=== PATIENT | female | born 1995 | race Caucasian/White ===

== ENCOUNTER → 2017-07-20 | Outpatient (CLI) | payer OTHER | END | disposition home or self-care (01) | LOC: C.LABSPEC 13:52 | PROVIDERS: ATTEND Obstetrics & Gynecology | DX: Z11.3 Encounter for screening for infections with a predominantly sexual mode of transmission (principal) ==

== ENCOUNTER 2020-03-07 07:19 | Inpatient (IN) ==
[2020-03-07] MEDS ORDERED: OXYTOCIN 30 UNITS/500 ML BAG IV PRN ×4 (07:29→17:46)
[2020-03-07 07:59] LABS: Hematocrit (blood only) 37.5 % (37-47); Hemoglobin 12.5 g/dL (12.0-16.0); Mean Corpuscular Volume 90.1 fL (80-100); Mean Platelet Volume 10.9 fL (7.4-10.4); Platelet Count 256 K/uL (130-400); RDW Coefficient of Variation 14.3 % (11.5-14.5); RDW Standard Deviation 46.9 fL (36.4-46.3); Red Blood Count 4.16 M/uL (4.2-5.4); White Blood Count 11.66 K/uL (4.8-10.8)
--- NOTE | 2020-03-07 07:59 | Obstetrical Progress Note ---
Date of Service March 07, 2020 Admit Note 24 F P0000 at 40 weeks admitted for IOL for obesity. Cervix 5/80/- 2/vertex/anterior/soft/intact. EFW 7.5 lbs. FHT Cat 1. GBS is negative. Will start Oxytocin to start induction of labor. Planning for epidural. Assessment & Plan Admission and Anticipated Discharge Date Admission Date: March 07, 2020 Results & Data ([facility]) Vital Signs (Past 12 Hours) Vital Signs Temp Pulse Resp BP 03/07/20 07:29 37.1 C 122 H 20 117/67
--- NOTE | 2020-03-07 08:01 | Anesthesiology Consultation ---
Date of Service March 07, 2020 Assessment & Plan Chart Review Chart Review: Acceptable Risk for Surgery, Patient NOT seen in Pre Admission Testing and Acceptable Risk for Labor Epidural Consults Requested none ASA ASA3 Proposed Anesthesia Anesthesia Type: Labor Epidural and CSE History Height/Weight Height: 5 ft 5 in Weight: 120.202 kg Allergies Allergy/AdvReac Type Severity Reaction Status Date / Time sulfamethoxazole AdvReac Nausea Unverified 03/07/20 07:32 [From Bactrim] trimethoprim [From Bactrim] AdvReac Nausea Unverified 03/07/20 07:32 Medications Home Medications Medication Instructions Recorded Confirmed Last Taken ondansetron 8 mg PO Q8H PRN 09/17/19 03/07/20 03/07/20 05:30 promethazine [Phenergan] 25 mg PO DAILY 03/07/20 03/07/20 03/07/20 05:30 Past Medical History Medical History Anxiety Depression Obesity with body mass index (BMI) of 30.0 to 39.9 Seasonal allergic rhinitis Exercise / Class Metabolic Activity II 4-5 Yardwork/Stairs/Walk up hill Past Family History Family History Mother Cardiac disorder Depression Diabetes Hypertension Father Cardiac disorder Hypertension Kidney stones Brother Kidney stones Seizures Aunt No problems noted. Family/Other Breast cancer great grandmother & maternal great aunt Grandfather Myocardial infarction Denies family history of Ovarian cancer Prostate cancer Colorectal cancer Past Surgical History Surgical History History of dental surgery 2011 & 2015 History of knee surgery Relocation of knee cap with anesthesia; 2008 Past Anesthesia History No Hx of Anesthesia Complications and No Family Hx of Anesthesia Complications History of PONV No Hx of PONV and No Hx of Motion Sickness Social History Smoking Status: Never smoker Do You Dip or Chew Tobacco: No Hx Alcohol Use: Yes Hx Substance Use: No Physical Exam Vital Signs Last Vital Signs Temp 37.1 C 03/07/20 07:29 Pulse 122 H 03/07/20 07:29 Resp 20 03/07/20 07:29 BP 117/67 03/07/20 07:29 Testing Laboratory Results 03/07/20 07:44
[2020-03-07 08:03] LABS: Mean Corpuscular Hgb Conc 33.3 g/dL (32-36)
[2020-03-07] MEDS: LACTATED RINGER'S 1,000 ML IV PRN ×2 (08:12→09:44)
--- NOTE | 2020-03-07 08:18 | Obstetrical Progress Note ---
Date of Service March 07, 2020 Assessment & Plan Admission and Anticipated Discharge Date Admission Date: March 07, 2020 Physical Exam Genitourinary: Manual OB Exam: + cervical dilation 5 cm, + cervical effacement 80%, + station -2 and + amniotic fluid clear OB Exam Monitor Tracing: + external FHT monitor used, + external uterine monitor used and + category I AROM with Amni-hook clear fluid Results & Data ([facility]) Vital Signs (Past 12 Hours) Vital Signs Temp Pulse Resp BP 03/07/20 07:29 37.1 C 122 H 20 117/67
[2020-03-07] MEDS ORDERED: ePHEDrine sulfate 50 MG/ML AMP ONE (08:49)
[2020-03-07] MEDS ORDERED: fentaNYL citrate 100 MCG/2 ML VIAL ONE (08:50)
[2020-03-07] MEDS ORDERED: BUPIVACAINE 0.25% 30 ML VIAL ONE (08:50)
[2020-03-07] MEDS ORDERED: fentaNYL 2MCG/ML ROPIV 1.25MG/ML 100 ML BAG EPI ONE (08:51)
[2020-03-07] MEDS ORDERED: BUTORPHANOL TARTRATE 1 MG/ML VIAL ONE (09:36)
[2020-03-07] MEDS ORDERED: BUTORPHANOL TARTRATE 1 MG/ML VIAL IV STA (09:39)
[2020-03-07] MEDS ORDERED: NALOXONE HCL 0.4 MG/1 ML VIAL/CARP IV PRN (09:52)
[2020-03-07] MEDS ORDERED: ONDANSETRON INJ 2 MG/ML 2 ML VIAL IV PRN (09:52)
[2020-03-07] MEDS ORDERED: fentaNYL 2MCG/ML ROPIV 1.25MG/ML 100 ML BAG EPI PRN (09:52)
[2020-03-07] MEDS ORDERED: ePHEDrine sulfate 50 MG/ML AMP IV PRN (09:52)
[2020-03-07] MEDS ORDERED: DiphenhydrAMINE HCL 50 MG/ML VIAL IV PRN (09:52)
[2020-03-07] MEDS ORDERED: PROMETHAZINE HCL 25 MG in SODIUM CHLORIDE 0.9% 50 ML IV PRN (09:52)
[2020-03-07] MEDS ORDERED: NALOXONE HCL 1 MG in SODIUM CHLORIDE 0.9% 1000ML 1,000 ML IV PRN (09:52)
--- NOTE | 2020-03-07 09:59 | Obstetrical Progress Note ---
Date of Service March 07, 2020 Assessment & Plan Admission and Anticipated Discharge Date Admission Date: March 07, 2020 Physical Exam Genitourinary: Manual OB Exam: + cervical dilation 8 cm, + cervical effacement 100%, + station -1 and + amniotic fluid clear OB Exam Monitor Tracing: + external FHT monitor used, + external uterine monitor used and + category I Results & Data ([facility]) Vital Signs (Past 12 Hours) Vital Signs Temp Pulse Resp BP Pulse Ox 03/07/20 09:57 113 H 116/70 03/07/20 09:55 114 H 124/73 96 03/07/20 09:53 116 H 124/68 03/07/20 09:52 113 H 132/63 03/07/20 09:50 113 H 134/72 97 03/07/20 09:48 103 H 132/67 03/07/20 09:46 106 H 137/75 03/07/20 09:45 104 H 96 03/07/20 09:40 110 H 98 03/07/20 09:35 109 H 97 03/07/20 09:31 92 H 133/88 03/07/20 09:30 91 H 97 03/07/20 09:25 84 95 03/07/20 09:20 100 H 96 03/07/20 09:15 122 H 95 03/07/20 09:10 112 H 97 03/07/20 09:07 130 H 195/102 H 03/07/20 09:05 120 H 96 03/07/20 07:29 37.1 C 122 H 20 117/67
--- NOTE | 2020-03-07 17:22 | Delivery Summary ---
Vaginal Delivery Summary Date of Service March 07, 2020 Vaginal Delivery Summary Delivery note live male MANUEL over intact perineum with delayed cord clamping and Apgars 9/10 weight pending. Cord blood obtained followed by spontaneous delivery of intact placenta. First degree tear repaired with 3/0 Vicryl suture. Final sponge and instrument count are correct. EBL 200 ml. Mom and baby stable.
--- NOTE | 2020-03-07 17:27 | Anesthesia Procedure Note ---
Date of Service March 07, 2020 Anesthesia Post Epidural Note Vital Signs Vital Signs: Temp Pulse Resp BP Pulse Ox 36.8 C 101 H 20 126/58 L 96 03/07/20 15:30 03/07/20 17:15 03/07/20 17:15 03/07/20 17:15 03/07/20 17:10 Pain Intensity Bilateral Abdomen: Pain Intensity: 3 Notes Mental Status: alert / awake / arousable Nausea / Vomiting: adequately controlled Pain: adequately controlled Airway Patency, RR, SpO2: stable & adequate BP & HR: stable & adequate Hydration State: stable & adequate Neuraxial Anesthesia: was administered and sensory block is resolving Anesthetic Complications: no major complications apparent Epidural: Removed without complications and With tip intact
[2020-03-07] MEDS ORDERED: bisacodyL 10 MG SUPP PR PRN (17:46)
[2020-03-07] MEDS ORDERED: ACETAMINOPHEN 325 MG TAB PO PRN (17:46)
[2020-03-07] MEDS ORDERED: HYDROCORTISONE ACETATE 25 MG SUPP PR PRN (17:46)
[2020-03-07] MEDS ORDERED: BENZOCAINE 20% AER SPR 82.5 GM CAN EXT PRN (17:46)
[2020-03-07] MEDS ORDERED: ONDANSETRON 8MG OD TAB PO PRN (17:46)
[2020-03-07] MEDS ORDERED: SUPERCREAM 0.870% 15 GM JAR EXT PRN (17:46)
[2020-03-07] MEDS ORDERED: DIPHTHERIA/TETANUS/PERTUSSIS 0.5 ML SYR/VIAL IM ONE (17:46)
[2020-03-07] MEDS: IBUPROFEN 600 MG TAB PO PRN ×2 (18:26→23:56)
[2020-03-07] MEDS: DOCUSATE SODIUM 100 MG CAP PO SCH (21:09)
[2020-03-08] MEDS: IBUPROFEN 600 MG TAB PO PRN ×3 (06:14→18:49)
[2020-03-08 06:59] LABS: Hematocrit (blood only) 33.7 % (37-47); Mean Corpuscular Hemoglobin 29.9 pg (25-34); Mean Corpuscular Hgb Conc 32.6 g/dL (32-36); Mean Corpuscular Volume 91.6 fL (80-100); Mean Platelet Volume 10.6 fL (7.4-10.4); Platelet Count 246 K/uL (130-400); RDW Coefficient of Variation 14.5 % (11.5-14.5); RDW Standard Deviation 48.4 fL (36.4-46.3); Red Blood Count 3.68 M/uL (4.2-5.4); White Blood Count 15.87 K/uL (4.8-10.8)
[2020-03-08] MEDS: FERROUS SULFATE 325 MG TAB PO SCH (07:35)
[2020-03-08] MEDS: DOCUSATE SODIUM 100 MG CAP PO SCH ×2 (07:35→20:15)
[2020-03-08] MEDS: PRENATAL VITAMIN 1 TAB PO SCH (07:35)
--- NOTE | 2020-03-08 07:41 | Obstetrical Progress Note ---
Date of Service March 08, 2020 Assessment & Plan Admission and Anticipated Discharge Date Admission Date: March 07, 2020 Subjective Patient is seen and examined. She feels well, no complaints. Ambulating without dizziness Voiding without difficulty Tolerating regular diet with out N&V Bleeding is minimal No fever/ chills/ CP/ SOB/ N&V/ Leg pain Breast and bottle feeding without problems Vital Signs Temp Pulse Resp BP Pulse Ox 03/08/20 07:32 36.5 C 88 18 120/81 98 03/08/20 03:44 36.9 C 93 H 18 121/75 03/08/20 00:21 36.6 C 81 18 121/79 03/07/20 20:56 37.1 C 91 H 18 109/64 Lab Results 03/07/20 03/08/20 Range/Units 07:44 06:23 WBC 11.66 H 15.87 H (4.8-10.8) K/uL RBC 4.16 L 3.68 L (4.2-5.4) M/uL Hgb 12.5 11.0 L (12.0-16.0) g/dL Hct 37.5 33.7 L (37-47) % MCV 90.1 91.6 (80-100) fL MCH 30.0 29.9 (25-34) pg MCHC 33.3 32.6 (32-36) g/dL RDW Std Deviation 46.9 H 48.4 H (36.4-46.3) fL RDW Coeff of Bryan 14.3 14.5 (11.5-14.5) % Plt Count 256 246 (130-400) K/uL MPV 10.9 H 10.6 H (7.4-10.4) fL PE: General: Alert, orientedx3, NAD Abd: soft, NT, fundus firm, below Umbilicus Perineum intact, Lochia rubra minimal Ext; NT, no edema AP: 24 yo s/p , ppd# 1 VSS Afebrile doing well Continue routine care All questions were answered D/C home tomorrow Results & Data ([facility]) Vital Signs (Past 12 Hours) Vital Signs Temp Pulse Resp BP Pulse Ox 03/08/20 07:32 36.5 C 88 18 120/81 98 03/08/20 03:44 36.9 C 93 H 18 121/75 08/27/20 00:21 36.6 C 81 18 121/79 03/07/20 20:56 37.1 C 91 H 18 109/64
[2020-03-08] MEDS ORDERED: PROMETHAZINE HCL 25 MG TAB PO SCH (09:00)
[2020-03-08] MEDS ORDERED: bisacodyL 5 MG TABEC PO SCH (20:00)
[2020-03-09] MEDS: IBUPROFEN 600 MG TAB PO PRN ×2 (06:23→11:11)
[2020-03-09 06:51] LABS: Hematocrit (blood only) 33.4 % (37-47); Hemoglobin 10.9 g/dL (12.0-16.0)
[2020-03-09] MEDS: FERROUS SULFATE 325 MG TAB PO SCH (08:38)
[2020-03-09] MEDS: DOCUSATE SODIUM 100 MG CAP PO SCH (08:38)
[2020-03-09] MEDS: PRENATAL VITAMIN 1 TAB PO SCH (08:38)
--- NOTE | 2020-03-09 13:15 | Obstetrical Progress Note ---
Date of Service March 09, 2020 Assessment & Plan Admission and Anticipated Discharge Date Admission Date: March 07, 2020 Subjective PPD#2 doing well passing gas gladys diet ambulating well Physical Exam Constitutional: comfortable abd soft neg Edgar's for d/c Results & Data ([facility]) Vital Signs (Past 12 Hours) Vital Signs Temp Pulse Resp BP Pulse Ox 03/09/20 11:12 36.6 C 90 18 107/74 98 03/09/20 09:52 36.6 C 90 18 107/74 98 03/09/20 08:00 36.6 C 90 18 107/74 98 Laboratory Results 03/07/20 03/08/20 03/09/20 07:44 06:23 06:16 WBC 11.66 H 15.87 H RBC 4.16 L 3.68 L Hgb 12.5 11.0 L 10.9 L Hct 37.5 33.7 L 33.4 L MCV 90.1 91.6 MCH 30.0 29.9 MCHC 33.3 32.6 RDW Std Deviation 46.9 H 48.4 H RDW Coeff of Bryan 14.3 14.5 Plt Count 256 246 MPV 10.9 H 10.6 H
== END 2020-03-09 14:20 | disposition home or self-care (01) | DRG 807 ==
LOC: 4S1 07:19 → 4S2 20:35

== ENCOUNTER 2023-08-27 18:56 | Inpatient (IN) ==
[2023-08-27] MEDS ORDERED: OXYTOCIN 30 UNITS/NSS 30 UNITS/500 ML BAG IV PRN (19:19)
[2023-08-27 20:10] LABS: Hematocrit (blood only) 33.5 % (37.0-47.0); Hemoglobin 11.2 g/dl (12.0-16.0); Mean Corpuscular Hemoglobin 28.6 pg (25.0-34.0); Mean Corpuscular Hgb Conc 33.4 g/dL (32.0-36.0); Mean Corpuscular Volume 85.7 fL (80.0-100.0); Mean Platelet Volume 10.1 fL (9.4-12.4); Platelet Count 262 K/uL (130-400); RDW Coefficient of Variation 14.5 % (11.5-14.5); RDW Standard Deviation 44.6 fL (36.4-46.3); Red Blood Count 3.91 M/uL (4.20-5.40); White Blood Count 12.98 K/ul (4.8-10.8)
--- NOTE | 2023-08-27 20:14 | History & Physical Report ---
Date of Service August 27, 2023 Assessment & Plan (1) Obesity affecting in third trimester, antepartum: Plan: 28-year-old -0-0-1 at 39 weeks and 1 day gestation who was scheduled for induction of labor at term for obesity, history of DVT, anticoagulation during , GBS positive, Vital signs stable afebrile, heart rate reassuring, Cervix favorable, Plan to admit, monitor, labs, penicillin for GBS, oxytocin per protocol and AROM after second dose of insulin, All questions were answered. (2) GBS (group B Streptococcus carrier), +RV culture, currently : Admission and Anticipated Discharge Date Admission Date: August 27, 2023 History of Present Illness Primary Care Provider: Lisa Masters PA-C Patient is a 28-year-old -0-0-1 at 39 weeks and 1 day gestation who was scheduled for induction of labor at term. She has no complaints other than regular irregular contractions and increased discharge. She denies gush of fluid leaking, vaginal bleeding, abdominal pain. She reports good movements. Her has been complicated by, 1. Obesity during , 2. 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 3. GBS positive, Allergies Allergy/AdvReac Type Severity Reaction Status Date / Time sulfamethoxazole AdvReac Mild Nausea Verified 08/27/23 19:23 [From Bactrim] trimethoprim [From Bactrim] AdvReac Mild Nausea Verified 08/27/23 19:23 Home Medications Medication Instructions Recorded Confirmed Type ondansetron 8 mg disintegrating 8 mg PO Q8H PRN Nausea And Vomiting 09/17/19 08/27/23 History tablet promethazine 25 mg tablet 25 mg PO DAILY 03/07/20 08/27/23 History heparin (bovine) 10,000 unit/mL 10,000 unit BID 08/27/23 08/27/23 History injection solution [id number] 1 mg 1 tab PO DAILY 08/27/23 08/27/23 History tablet Patient History Medical History (Updated 08/27/23 @ 20:19 by Brandie Arboleda MD) History of DVT (deep vein thrombosis) left leg 2019; left upper arm 2022 (following surgery) Factor V Leiden mutation Dx 2022 prior to PCOS (polycystic ovarian syndrome) Anxiety Depression Obesity with body mass index (BMI) of 30.0 to 39.9 Seasonal allergic rhinitis Surgical History History of carpal tunnel surgery History of knee surgery Relocation of knee cap with anesthesia; 2008 History of dental surgery 2011 & 2015 Family History Mother Cardiac disorder Depression Diabetes Hypertension Father Cardiac disorder Hypertension Kidney stones Brother Kidney stones Seizures Aunt No problems noted. Family/Other Breast cancer great grandmother & maternal great aunt Grandfather Myocardial infarction Denies family history of Ovarian cancer Prostate cancer Colorectal cancer Social History Smoking Status: Never smoker Second Hand Exposure: No; Do You Dip or Chew Tobacco: No; Hx Alcohol Use: No Hx Substance Use: No Preferred Language: Turkish Communication Ability: Effective Visual Impairment: No Limitations Hearing Ability: Normal Rpg Programmer Required: No Beliefs That Will Affect Care: None marital status: marital status details: Riki Harvey Current Living Situation: Spouse Current Living Situation Comment: house with and son current occupational status: employed current occupation: Scheduling at [employer] Other Information That Helps Us Care for You: No Feels Safe at Home: Yes Safety Concerns: Feels Safe At This Time Dental Care, Regularly: Yes Physical Activity Frequency: Daily Assistive Devices: Glasses OB History Full-term on February 2020, no complications CLINICAL OPERATIONS LEADER History No history of STDs, no history of chlamydia, gonorrhea, herpes. Review of Systems as per Subjective / HPI Physical Exam Constitutional: WD/WN, vitals as above well developed, well nourished, + obese and comfortable Gastrointestinal (Abdomen): normal bowel sounds, soft, nontender, no hepatosplenomegaly (Gravid) Genitourinary: no vaginal lesions, no adnexal mass OB Exam Abdomen: + vertex Manual OB Exam: + cervical dilation 3 cm (3-4 CM), + cervical effacement 50% and + station -2 OB Exam Monitor Tracing: + external uterine monitor used and + category I Results & Data Vital Signs (Past 12 Hours) Vital Signs Temp Pulse Resp BP O2 Del Method 08/27/23 19:26 36.7 C 18 Room Air 08/27/23 19:21 36.7 C 96 H 18 121/71 Diagnostic Findings Lab Results 08/27/23 Range/Units 19:48 WBC 12.98 H (4.8-10.8) K/ul RBC 3.91 L (4.20-5.40) M/uL Hgb 11.2 L (12.0-16.0) g/dl Hct 33.5 L (37.0-47.0) % MCV 85.7 (80.0-100.0) fL MCH 28.6 (25.0-34.0) pg MCHC 33.4 (32.0-36.0) g/dL RDW Std Deviation 44.6 (36.4-46.3) fL RDW Coeff of Bryan 14.5 (11.5-14.5) % Plt Count 262 (130-400) K/uL MPV 10.1 (9.4-12.4) fL Code Status & VTE Plan VTE Prophylaxis Plan VTE Prophylaxis will be ordered: Yes (1) Obesity affecting in third trimester, antepartum Obesity type affecting : unspecified obesity Qualified Code(s): O99.213 - Obesity complicating , third trimester
[2023-08-27] MEDS: LACTATED RINGER'S 1,000 ML IV PRN (20:18)
[2023-08-27] MEDS: PENICILLIN GK 6 MU in DEXTROSE 5% 250 ML IV STA (20:27)
[2023-08-27] MEDS: OXYTOCIN 30 UNITS/NSS 30 UNITS/500 ML BAG IV PRN (20:28)
[2023-08-27] MEDS: DINOPROSTONE 10 MG INSERT PV ONE (20:39)
[2023-08-28] MEDS: PENICILLIN GK 3 MU in DEXTROSE 5% 100 ML IV PRN
[2023-08-28] MEDS ORDERED: NALOXONE HCL 0.4 MG/1 ML VIAL/CARP IV PRN (00:33)
[2023-08-28] MEDS ORDERED: NALBUPHINE HCL 5 MG in SYRINGE 0 ML IV PRN (00:33)
[2023-08-28] MEDS ORDERED: ROPIVACAINE 0.5% PF 5 MG/ML 20 ML VIAL EPI PRN (00:33)
[2023-08-28] MEDS ORDERED: diphenhydrAMINE 50 MG/ML VIAL IV PRN (00:33)
[2023-08-28] MEDS ORDERED: ePHEDrine sulfate 50 MG/ML AMP IV PRN (00:33)
[2023-08-28] MEDS ORDERED: SODIUM CHLORIDE 0.9% PF INJ 10 ML VIAL EPI PRN (00:33)
[2023-08-28] MEDS ORDERED: BUPIVACAINE 0.25% PF 30 ML VIAL EPI PRN (00:33)
[2023-08-28] MEDS ORDERED: NALOXONE HCL 1 MG in SODIUM CHLORIDE 0.9% 1,000 ML IV PRN (00:33)
[2023-08-28] MEDS ORDERED: fentaNYL citrate PF 100 MCG/2 ML VIAL EPI PRN (00:33)
[2023-08-28] MEDS ORDERED: LIDOCAINE 2% MPF LOCAL 5 ML VIAL EPI PRN (00:33)
--- NOTE | 2023-08-28 00:33 | Anesthesiology Consultation ---
Date of Service August 28, 2023 Assessment & Plan (1) Encounter for pre-operative examination: Chart Review Chart Review: Patient NOT seen in Pre Admission Testing and Acceptable Risk for Labor Epidural Consults Requested none History Height/Weight Height: 5 ft 5 in Weight: 112.491 kg Allergies Allergy/AdvReac Type Severity Reaction Status Date / Time sulfamethoxazole AdvReac Mild Nausea Verified 08/27/23 19:23 [From Bactrim] trimethoprim [From Bactrim] AdvReac Mild Nausea Verified 08/27/23 19:23 Medications Home Medications Medication Instructions Recorded Confirmed Last Taken ondansetron 8 mg disintegrating 8 mg PO Q8H PRN Nausea And Vomiting 09/17/19 08/27/23 03/07/20 05:30 tablet promethazine 25 mg tablet 25 mg PO DAILY 03/07/20 08/27/23 03/07/20 05:30 heparin (bovine) 10,000 unit/mL 10,000 unit BID 08/27/23 08/27/23 08/26/23 10:00 injection solution [id number]-FA 1 mg 1 tab PO DAILY 08/27/23 08/27/23 08/27/23 tablet Active Medications Generic Name Dose Route Start Last Admin Trade Name Freq PRN Reason Stop Dose Admin Lactated Ringer's 1,000 mls @ 150 mls/hr 08/27/23 19:19 08/28/23 00:03 Lr IV 08/29/23 19:18 999 mls/hr .Q6H40M PRN Infusion L&D Protocol Protocol Penicillin G Potassium 3 mu/ 106 mls @ 100 mls/hr 08/27/23 22:23 08/28/23 00:00 Dextrose IV 09/06/23 22:22 100 mls/hr Q4H PRN Administration GBS(+) Until Delivery Oxytocin 30 units in 500 mls @ 2 mls/hr 08/27/23 20:14 08/27/23 20:28 Pitocin 30 Units/Nss IV 08/29/23 20:13 0.12 units/hr .Q24H PRN 2 mls/hr Labor Induction/Augmentation Administration Protocol 0.12 UNITS/HR Past Medical History Medical History History of DVT (deep vein thrombosis) left leg 2019; left upper arm 2022 (following surgery) Factor V Leiden mutation Dx 2022 prior to PCOS (polycystic ovarian syndrome) Anxiety Depression Obesity with body mass index (BMI) of 30.0 to 39.9 Seasonal allergic rhinitis Past Family History Family History Mother Cardiac disorder Depression Diabetes Hypertension Father Cardiac disorder Hypertension Kidney stones Brother Kidney stones Seizures Aunt No problems noted. Family/Other Breast cancer great grandmother & maternal great aunt Grandfather Myocardial infarction Denies family history of Ovarian cancer Prostate cancer Colorectal cancer Past Surgical History Surgical History History of carpal tunnel surgery History of knee surgery Relocation of knee cap with anesthesia; 2008 History of dental surgery 2011 & 2015 Social History Smoking Status: Never smoker Do You Dip or Chew Tobacco: No Hx Alcohol Use: No Hx Substance Use: No substance use type: does not use Physical Exam Vital Signs Last Vital Signs Temp 98.1 F 08/27/23 23:21 Pulse 74 08/27/23 23:21 Resp 18 08/27/23 23:21 BP 114/62 08/27/23 23:21 O2 Del Method Room Air 08/27/23 19:26 Testing Laboratory Results 08/27/23 19:48 Blood Type O Positive 08/27/23 19:48 Antibody Screen NEGATIVE 08/27/23 19:48
[2023-08-28] MEDS: LIDOCAINE 2%/EPINEPHRINE 1:200,000 20 ML PF EPI STA (00:49)
[2023-08-28] MEDS: BUPIVACAINE 0.25% PF 30 ML VIAL EPI STA (00:50)
[2023-08-28] MEDS: fentANYL 2 MCG/ML BUPIVacaine 0.125%-NSS 100ML BAG EPI PRN (00:53)
[2023-08-28] MEDS: SODIUM CHLORIDE 0.9% PF INJ 10 ML VIAL ONE (01:01)
[2023-08-28] MEDS: LIDOCAINE 2%/EPINEPHRINE 1:200,000 20 ML PF ONE (01:01)
[2023-08-28] MEDS: fentaNYL citrate PF 100 MCG/2 ML VIAL ONE (01:01)
[2023-08-28] MEDS: BUPIVACAINE 0.25% PF 30 ML VIAL ONE (01:01)
[2023-08-28] MEDS: fentANYL 2 MCG/ML BUPIVacaine 0.125%-NSS 100ML BAG ONE (01:01)
[2023-08-28] MEDS: ePHEDrine sulfate 50 MG/ML AMP ONE (01:08)
[2023-08-28] MEDS: SODIUM CHLORIDE 0.9% PF INJ 10 ML VIAL EPI STA (01:09)
[2023-08-28] MEDS: fentaNYL citrate PF 100 MCG/2 ML VIAL EPI STA (01:09)
[2023-08-28] MEDS ORDERED: ONDANSETRON INJ 2 MG/ML 2 ML VIAL IV PRN (01:31)
[2023-08-28] MEDS ORDERED: CALCIUM CARBONATE 500 MG CHEWABLE TAB PO PRN (01:31)
--- NOTE | 2023-08-28 01:31 | Obstetrical Progress Note ---
Date of Service August 28, 2023 Assessment & Plan Admission and Anticipated Discharge Date Admission Date: August 27, 2023 Subjective Patient is reevaluated. Had epidural and comfortable now. VE; 5/ 50%/ -2, tight bulging bag, AROM'ed abundant clear fluid was obtained. FHR Categ I Received 2 doses of penicillin already, Continue to monitor closely, Anticipate . Results & Data Vital Signs (Past 12 Hours) Vital Signs Temp Pulse Resp BP Pulse Ox O2 Del Method 08/28/23 01:25 95 H 99 08/28/23 01:20 104 H 94 08/28/23 01:18 88 96/52 L 08/28/23 01:15 94 08/28/23 01:15 85 08/28/23 01:15 86 94 08/28/23 01:10 101 H 95 08/28/23 01:05 108 H 96 08/28/23 01:03 106 H 103/57 L 08/28/23 01:01 87 104/55 L 08/28/23 01:00 89 18 97 08/28/23 00:59 100 H 99/52 L 08/28/23 00:57 102 H 108/68 08/28/23 00:55 89 97 08/28/23 00:53 100 H 99/54 L 08/28/23 00:50 109 H 98/54 L 98 08/28/23 00:47 109 H 131/60 08/28/23 00:45 100 H 128/62 98 08/28/23 00:40 123 H 98 08/28/23 00:37 18 08/28/23 00:37 36.6 C 104 H 18 145/70 H 08/28/23 00:35 101 H 96 08/28/23 00:30 18 08/28/23 00:30 36.6 C 18 08/27/23 23:21 36.7 C 74 18 114/62 08/27/23 21:31 83 129/61 08/27/23 20:30 85 113/62 08/27/23 19:26 36.7 C 18 Room Air 08/27/23 19:21 36.7 C 96 H 18 121/71
[2023-08-28] MEDS: ONDANSETRON INJ 2 MG/ML 2 ML VIAL ONE (01:44)
[2023-08-28] MEDS: LIDOCAINE 1% LOCAL 20 ML VIAL INFIL PRN (04:06)
[2023-08-28] MEDS ORDERED: bisacodyL 10 MG SUPP PR PRN (04:10)
[2023-08-28] MEDS ORDERED: HYDROCORTISONE ACETATE 25 MG SUPP PR PRN (04:10)
[2023-08-28] MEDS ORDERED: OXYTOCIN 30 UNITS/NSS 30 UNITS/500 ML BAG IV PRN (04:10)
--- NOTE | 2023-08-28 04:13 | Delivery Summary ---
Vaginal Delivery Summary Date of Service August 28, 2023 Vaginal Delivery Summary Patient was found to be fully dilated and desires to push. She pushed for about 10 min and delivered the head and then shoulders with minimal traction. There was a nuchal cordx1 it was reduced. The baby was handed off to the mother. The cord was clampedx2 and cut at 1 minute. The vagina and perineum were checked and found to have small 2nd degree perineal laceration and 1st degree clitoral. The vaginal mucosa was repaired with 2/0 vicryl and skin on subcuticular fashion. Clitoris was repired with 3-0 Vicryl on SH needle. The placenta was delivered spontaneously as intact and complete. The uterus was explored and found to be empty. EBL was 200 ml. The fundus was firm The baby was a viable male infant, Apgars 8/9, the weight is pending The mother and the baby tolerated the procedure well. No complications happened and I was present during whole procedure.
--- NOTE | 2023-08-28 04:25 | Anesthesia Procedure Note ---
Date of Service August 28, 2023 Anesthesia Post Epidural Note Vital Signs Vital Signs: Temp Pulse Resp BP Pulse Ox O2 Del Method 98.8 F 91 H 18 107/57 L 96 Room Air 08/28/23 03:34 08/28/23 04:18 08/28/23 02:00 08/28/23 04:18 08/28/23 04:00 08/27/23 19:26 Notes Mental Status: alert / awake / arousable and participated in evaluation Nausea / Vomiting: adequately controlled Pain: adequately controlled Airway Patency, RR, SpO2: stable & adequate BP & HR: stable & adequate Hydration State: stable & adequate Neuraxial Anesthesia: was administered and sensory block is resolving Anesthetic Complications: no major complications apparent and Pt Satisfied with anesthetic care Epidural: Removed without complications and With tip intact
[2023-08-28] MEDS: DIPHTHER/TETAN/PERTUS Vaccine (Tdap, Adol/Adult) 0.5mL IM ONE (04:47)
[2023-08-28] MEDS: MEASLES, MUMPS & RUBELLA VIRUS VACCINE (MMR) VIAL SQ ONE (04:48)
[2023-08-28] MEDS: IBUPROFEN 600 MG TAB PO PRN (05:18)
[2023-08-28] MEDS: BENZOCAINE 20% SPRY 85 APPLN/85 GM CAN EXT PRN (05:18)
[2023-08-28 07:28] LABS: Creatinine Clr Calc Pharmacy 158.2 ml/min; Est GFR (African American) 138.1 ml/min; Est GFR (Non-African American) 119.1 ml/min
[2023-08-28] MEDS: FERROUS SULFATE 325 MG TAB PO SCH (09:14)
[2023-08-28] MEDS: DOCUSATE SODIUM 100 MG CAP PO SCH (09:14)
[2023-08-28] MEDS: PRENATAL VITAMIN 1 TAB PO SCH (09:14)
[2023-08-28] MEDS: ACETAMINOPHEN 325 MG TAB PO PRN (14:54)
[2023-08-28] MEDS: ENOXAPARIN INJ 40 MG/0.4 ML SYR SQ SCH (21:08)
[2023-08-29 08:41] LABS: Hematocrit (blood only) 31.5 % (37.0-47.0); Hemoglobin 9.9 g/dl (12.0-16.0); Mean Corpuscular Hemoglobin 27.8 pg (25.0-34.0); Mean Corpuscular Hgb Conc 31.4 g/dL (32.0-36.0); Mean Corpuscular Volume 88.5 fL (80.0-100.0); Mean Platelet Volume 10.1 fL (9.4-12.4); Platelet Count 215 K/uL (130-400); RDW Coefficient of Variation 14.5 % (11.5-14.5); RDW Standard Deviation 46.5 fL (36.4-46.3); Red Blood Count 3.56 M/uL (4.20-5.40); White Blood Count 11.49 K/ul (4.8-10.8)
--- NOTE | 2023-08-29 10:49 | Obstetrical Progress Note ---
Date of Service August 29, 2023 Assessment & Plan (1) Normal course: Pt doing well No complaints d/c home with instructions Subjective Ambulation: ambulating normally Voiding: no voiding problems Passing Gas:: Yes Diet Tolerance:: regular diet Lochia:: Small Feeding Type:: breast feeding Review of Systems All systems reviewed & are unremarkable except as noted in HPI & below Physical Exam Constitutional WD/WN, vitals as above well developed and well nourished Eyes PERRL, conjunctivae normal, anicteric sclerae Neck trachea midline, no thyromegaly Respiratory normal respiratory effort, lungs clear to auscultation Auscultation: no crackles, no rales and no wheezes Cardiovascular RRR, no murmur, no edema Gastrointestinal (Abdomen) normal bowel sounds, soft, nontender, no hepatosplenomegaly Uterus is below umbilicus Musculoskeletal no cyanosis or clubbing, extremities motor strength 5/5 Skin no rashes, warm and dry Neurologic patellar DTR's 2+ bilat, sensation intact Psychiatric A+Ox3, euthymic affect Genitourinary normal external appearance Results & Data Vital Signs (Past 12 Hours) Vital Signs Temp Pulse Pulse Resp BP Pulse Ox O2 Del Method 08/29/23 07:00 36.8 C 79 18 118/55 L 98 Room Air 08/29/23 03:35 36.6 C 74 14 103/62 97 Room Air 08/28/23 23:20 36.7 C 94 H 16 110/76 94 Room Air
[2023-08-29] MEDS ORDERED: bisacodyL 5 MG TABEC PO SCH (20:00)
== END 2023-08-29 13:30 | disposition home health service (06) | DRG 807 ==
LOC: 4S1 18:56 → 4E1 08-28 06:20